=== PATIENT | male | born 1940 ===

== ENCOUNTER → 2018-10-11 | Outpatient (CLI) | payer MEDICARE, OTHER ==
[~2018-10-11] MED LIST: ASC500 PO; ASPI-1441 PO; ASPI81TA60; CELE-1 PO; CELE50CA2; CLIN300C99 PO; DUTA0.5C14 PO; EZET1TAB PO; GLUC-135 PO; KET10 PO; LIS20 PO; LISI-347 PO; LISI-355; LOR5/325 PO; MULT1CAP41 PO; PREG20SO; PREG75CA61 PO; TAMS0.4C76; TAMS0.4C76 PO
--- NOTE | 2018-10-11 11:42 | RADIOLOGY IMAGING REPORT ---
FACILITY: [facility] PATIENT NAME: Glen Ta : 1940 MR: [id number] V: [id number] EXAM DATE: ORDERING PHYSICIAN: YANIRA PETTIT TECHNOLOGIST: Location: [facility] Patient: Glen Ta : 1940 Visit/Account:[id number] Date of Sevice: 10/11/2018 ANKLE 3 VIEW MIN LEFT HISTORY: Left ankle swelling/redness Three-view examination of the left ankle FINDINGS: The distal left tibia and fibular well-maintained with no fracture or acute osseous pathology. Ankle mortise is well-maintained. There is no joint effusion. Soft tissue edema changes noted in lower ext remity. No soft tissue air noted. The talus, calcaneus and mid foot structures are unremarkable. 5 mm plantar spurring change noted. Ca lcification noted in the dorsalis pedis and posterior tibial arteries. Impression 1. No acute bony pathology. Soft tissue edema/swelling in the lower extremity. Report Dictated By: Sridhar Dorsey MD at 10/11/2018 11:36 AM Report E-Signed By: Sridhar Dorsey MD at 10/11/2018 11:38 AM WSN:[id number]
--- NOTE | 2018-10-11 12:00 | RADIOLOGY IMAGING REPORT ---
FACILITY: [facility] PATIENT NAME: Glen Ta : 1940 MR: [id number] V: [id number] EXAM DATE: ORDERING PHYSICIAN: YANIRA PETTIT TECHNOLOGIST: Location: [facility] Patient: Glen Ta : 1940 Visit/Account:[id number] Date of Sevice: 10/11/2018 Exam type: VENOUS DOPP LOW LEFT EXTREMITY History: Left leg cellulitis Comparison: None. Findings: There are multiple incidental lymph nodes in the left groin largest measuring 2.7 x 1.7 x 1.1 cm. The left common femoral vein greater saphenous vein superficial femoral vein appear patent and are co mpressible. The proximal left popliteal vein appears patent and compressible. The mid and distal le ft popliteal vein are partially compressible. Calf veins were not ideally seen. Incidentally noted is soft tissue edema of the left calf IMPRESSION: 1. Finds are consistent with DVT in the mid and distal left popliteal vein which was only partially compressible Results were called to YANIRA PETTIT at 10/11/2018 11:56 AM. Report Dictated By: Josie Snyder MD at 10/11/2018 11:51 AM Report E-Signed By: Josie Snyder MD at 10/11/2018 11:56 AM WSN:[email or web address]
== END ==
LOC: US 10:14
PROVIDERS: ATTEND Physician Assistant Medical
DX: L03.116 Cellulitis of left lower limb (principal); I82.432 Acute embolism and thrombosis of left popliteal vein; R22.43 Localized swelling, mass and lump, lower limb, bilateral